=== PATIENT | female | born 1960 | race Caucasian/White ===

== ENCOUNTER → 2017-02-19 | Outpatient (CLI) | payer OTHER ==
[~2017-02-19] MED LIST: ACETAMINOPHEN-1 EAC1 PO; APAP500 PO; IBUPROFEN 200200 M1 PO; [UNRECOGNIZED DRUG - OTHER] PO
== END ==
LOC: CAT 15:11
DX: R10.31 Right lower quadrant pain (principal)

== ENCOUNTER → 2017-05-23 | Outpatient (CLI) | payer OTHER ==
--- NOTE | ~2017-05-23 | SLE ---
[facility] [address] [place] [address] POLYSOMNOGRAPHY STUDY Name: OLIVER BRUMFIELD BENNY Room #: REG [facility] MDeborah.#: [id number] Admission: 05/23/17 Attend Phys: Godfrey Urrutia MD Discharge: Date of : 62 Report #: [id number] THIS REPORT FOR: //name// CC: Godfrey Urrutia Kwaku Fleming A 57-year-old, height 5 feet 8 inches, weight 230 pounds. Usually goes to bed at 9:00 p.m., gets out of bed at 5:30 to 6:30 a.m. Positive snoring, sometimes feels tired in the afternoon. Meds include Celexa, sometimes Naprosyn. COMMENTS: Total sleep time 377.5 minutes, sleep efficiency 77%. Sleep latency 37 minutes. REM latency 84 minutes. SLEEP STAGE: 1-10%, 2-74%, 3-3%, REM-13%. Central apnea 1, obstructive apnea 24, hypopnea 73. Apnea-hypopnea index 16 events per hour. Non-REM AHI 11, REM AHI 43. Supine AHI 24, left lateral 12, right lateral 4 events per sleep hour. Periodic limb movement with arousal index 0 events per sleep hour. Low oxygen saturation 85%, spending less than 1% of recording time less than 90%. The patient did not meet criteria until later in study. IMPRESSION: 1. Obstructive sleep apnea/hypopnea, G47.33. 2. Periodic limb movement with arousal index 0 events per sleep hour. 3. Frequent PACs, occasional PVC. SUGGESTIONS: 1. In addition to specific therapy, the patient should be cautioned regarding driving or operating dangerous machinery unless fully alert. The patient should be cautioned regarding the use of respiratory depressants. 2. Weight loss is recommended. 3. Oral appliance or appropriate surgery may be considered with appropriate followup. 4. An auto titrating CPAP is initially recommended between 5 and 15 cm water pressure. 5. May consider Holter monitor. 6. Sleep position retraining is recommended. 7. If signs and symptoms not improved with therapy, further evaluation recommended. Please do not hesitate to contact me if I may be of further assistance. 8. Of note, the patient relates that her sleep was better on this night and further discussion regarding this is recommended. <ELECTRONICALLY SIGNED> By: Godfrey Urrutia MD 05/25/17 1411 [id number] Godfrey Urrutia MD /nt
== END ==
LOC: SLEEPLAB 18:45
DX: G47.33 Obstructive sleep apnea (adult) (pediatric) (principal)

== ENCOUNTER → 2017-12-09 | Outpatient (CLI) | payer OTHER | LOC: CAT 07:42 | DX: Z13.6 Encounter for screening for cardiovascular disorders (principal) ==

== ENCOUNTER → 2018-02-14 | Outpatient (CLI) | payer OTHER | LOC: RAD 16:20 | DX: M47.896 Other spondylosis, lumbar region (principal); M41.86 Other forms of scoliosis, lumbar region; M54.32 Sciatica, left side; M43.16 Spondylolisthesis, lumbar region ==

== ENCOUNTER → 2020-11-04 | Outpatient (CLI) | payer OTHER | LOC: ULTRA 08:36 | PROVIDERS: ATTEND Nurse Practitioner | DX: K76.0 Fatty (change of) liver, not elsewhere classified (principal); R31.9 Hematuria, unspecified; R10.9 Unspecified abdominal pain; Z90.49 Acquired absence of other specified parts of digestive tract ==

== ENCOUNTER → 2021-02-05 | Outpatient (CLI) | payer OTHER ==
[2021-02-05 11:44] LABS: ABSOLUTE NEUTROPHILS 2.8 thou/uL (1.4-8.2); BASOPHILS 0.8 % (0.0-2.0); EOSINOPHILS 2.9 % (0.0-3.0); HEMATOCRIT 41.9 % (37.0-47.0); HEMOGLOBIN 13.9 gm/dL (12.0-15.0); LYMPHOCYTES 46.1 % (24.0-44.0); MCH 30.1 pg (26.0-34.0); MCHC 33.2 g/dL (28.0-37.0); MCV 90.7 fL (80.0-100.0); PLATELET COUNT 274 thou/uL (150-400); POLYS 44.2 % (36.0-66.0); RBC 4.62 mil/uL (4.20-5.00); RDW 13.8 % (10.5-14.5); WBC 6.5 thou/uL (4.0-11.0)
[2021-02-05 11:56] LABS: CHOLESTEROL 230 mg/dL (<200); HDL CHOLESTEROL 45 mg/dL (>40); LDL CHOLESTEROL 162 mg/dL (<100); TC:HDL 5.1 Ratio (Not establshd); TRIGLYCERIDE 119 mg/dL (<150); VLDL 24 mg/dL (<40)
== END ==
LOC: LAB 10:57
PROVIDERS: ATTEND Nurse Practitioner
DX: G47.33 Obstructive sleep apnea (adult) (pediatric) (principal); L65.9 Nonscarring hair loss, unspecified; E53.9 Vitamin B deficiency, unspecified